=== PATIENT | female | born 1990 | race Caucasian/White ===

== ENCOUNTER 2017-10-22 16:02 | Outpatient (CLI) | payer OTHER ==
[~2017-10-22] VITALS: Ht 157.5 cm; Wt 65.0 kg
[2017-10-22 16:16] VITALS: BP 121/64; PULSE 86; TEMP 97.9
[2017-10-22] MEDS ORDERED: PRENATAL (16:33)
[2017-10-22 17:00] VITALS: BP 121/64; PULSE 86; TEMP 97.9
== END 2017-10-22 17:15 | disposition home or self-care (01) ==
LOC: LDRO 16:02
DX: O62.9 Abnormality of forces of labor, unspecified (principal); Z3A.28 28 weeks gestation of pregnancy

== ENCOUNTER → 2017-10-29 | Outpatient (CLI) | payer OTHER ==
[~2017-10-29] MED LIST: PRENATAL
== END ==
LOC: SUN.DIA 08:31
DX: O24.419 Gestational diabetes mellitus in pregnancy, unspecified control (principal); Z3A.30 30 weeks gestation of pregnancy; Z71.3 Dietary counseling and surveillance
CPT/HCPCS: G0108

== ENCOUNTER → 2017-11-13 | Outpatient (CLI) | payer OTHER | LOC: SUN.DIA 11:04 | DX: O24.419 Gestational diabetes mellitus in pregnancy, unspecified control (principal); Z3A.32 32 weeks gestation of pregnancy; Z71.3 Dietary counseling and surveillance | CPT/HCPCS: G0108 ==

== ENCOUNTER 2017-11-26 10:37 | Emergency (ER) | payer OTHER ==
[~2017-11-26] VITALS: Ht 157.5 cm; Wt 64.9 kg
[2017-11-26 10:39] VITALS: TEMP 98.4
[2017-11-26 12:06] VITALS: BP 109/75; PULSE 72
== END 2017-11-26 12:07 | disposition home or self-care (01) ==
LOC: COL.ER 10:37
DX: O99.353 Diseases of the nervous system complicating pregnancy, third trimester (principal); G43.909 Migraine, unspecified, not intractable, without status migrainosus; Z3A.33 33 weeks gestation of pregnancy

== ENCOUNTER → 2017-12-10 | Outpatient (CLI) | payer OTHER | LOC: SUN.DIA 09:07 | DX: O24.419 Gestational diabetes mellitus in pregnancy, unspecified control (principal); Z3A.36 36 weeks gestation of pregnancy; Z71.3 Dietary counseling and surveillance | CPT/HCPCS: G0108 ==

== ENCOUNTER 2017-12-30 05:19 | Inpatient (IN) | payer OTHER ==
[2017-12-30] VITALS (18 sets, daily range): BP systolic 102–118; BP diastolic 52–77; PULSE 58–94; TEMP 97.7–98.5
[~2017-12-30] VITALS: Ht 154.9 cm; Wt 68.6 kg
[2017-12-30 06:07] LABS: BASO # 0.1 (0.0-0.2); BASO % 0.8 % (0.0-2.0); EOS # 0.1 (0.0-0.7); EOS % 1.1 % (0-4.0); GRAN # 7.2 (1.4-6.5); GRAN % 61.3 % (42.2-75.2); HEMATOCRIT 37.4 % (37.0-47.0); HEMOGLOBIN 12.9 g/dl (12.5-16.0); LYMPH # 3.6 (1.2-3.4); LYMPH % 30.4 % (20.0-51.0); MEAN CELL VOLUME 88 fl (80.0-100.0); MEAN CORPUSCULAR HEMOGLOBIN 30 pg (27.0-31.0); MEAN CORPUSCULAR HGB CONC 35 g/dl (33.0-37.0); MEAN PLATELET VOLUME 11.5 fl (7.4-10.4); MONO # 0.7 (0.1-0.6); MONO % 5.8 % (1.7-9.3); PLATELET COUNT 200 K/mm3 (130-400); RED BLOOD COUNT 4.24 M/mm3 (4.10-5.30); REDCELL DISTRIBUTION WIDTH-CV 12.3 % (11.5-14.5)
[2017-12-30] MEDS ORDERED: PERCOCET 325 MG1 TA2 PO (08:18)
[2017-12-30] MEDS ORDERED: MOTRIN 800800 MG/TAB PO (08:18)
[2017-12-31 02:57] VITALS: BP 99/63; PULSE 78; TEMP 98.5
[2017-12-31 07:23] VITALS: BP 93/55; PULSE 85
[2017-12-31 16:21] VITALS: BP 109/65; PULSE 86; TEMP 97.6
[2017-12-31 20:30] VITALS: BP 115/68; PULSE 89; TEMP 97.9
[2018-01-01 07:30] VITALS: BP 112/61; PULSE 90
[2018-01-01 16:27] VITALS: BP 103/63; PULSE 94
[2018-01-01 21:30] VITALS: BP 110/62; PULSE 85; TEMP 97.8
[2018-01-02 08:35] VITALS: BP 131/73; PULSE 92; TEMP 98.1
== END 2018-01-02 11:00 | disposition home or self-care (01) | DRG 765 ==
LOC: OB 05:19
PROVIDERS: Obstetrics & Gynecology
PROC: 10D00Z1 Extraction of Products of Conception, Low, Open Approach (ICD-10-PCS; principal; 2017-12-30)
DX: O32.1XX0 Maternal care for breech presentation, not applicable or unspecified (principal); O36.5930 Maternal care for other known or suspected poor fetal growth, third trimester, not applicable or unspecified; O34.03 Maternal care for unspecified congenital malformation of uterus, third trimester; O24.420 Gestational diabetes mellitus in childbirth, diet controlled; Q51.3 Bicornate uterus; Z3A.38 38 weeks gestation of pregnancy; Z37.0 Single live birth
CPT/HCPCS: J0690; J1885; J2270; J2370; J2405; J2590; J7120

== ENCOUNTER → 2018-02-20 | Outpatient (CLI) | payer OTHER ==
[~2018-02-20] MED LIST changes: +MOTRIN 800800 MG/TAB PO; +PERCOCET 325 MG1 TA2 PO
== END ==
LOC: MC.RAD 08:50
DX: N63.11 Unspecified lump in the right breast, upper outer quadrant (principal)

== ENCOUNTER → 2018-05-01 | Outpatient (CLI) | payer OTHER | LOC: COL.RAD 14:33 | DX: O34.01 Maternal care for unspecified congenital malformation of uterus, first trimester (principal); Z98.890 Other specified postprocedural states | CPT/HCPCS: A9585 ==

== ENCOUNTER → 2020-01-13 | Outpatient (CLI) | payer OTHER | LOC: DIA.ED 08:45 | DX: O24.419 Gestational diabetes mellitus in pregnancy, unspecified control (principal) | CPT/HCPCS: G0108 ==

== ENCOUNTER → 2020-02-26 | Outpatient (CLI) | payer OTHER | LOC: COL.LAB 08:00 | DX: Z20.828 Contact with and (suspected) exposure to other viral communicable diseases (principal) ==

== ENCOUNTER 2020-03-01 05:35 | Inpatient (IN) | payer OTHER ==
[2020-03-01] VITALS (18 sets, daily range): BP systolic 92–133; BP diastolic 59–86; PULSE 58–86; TEMP 97.6–98.4
[~2020-03-01] VITALS: Ht 157.5 cm; Wt 67.3 kg
--- NOTE | 2020-03-01 05:40 | NUR ---
0540 ADM TO 221 FOR REPEAT C/SECT. EFM ON. PERMITS SIGNED. 0600 IV LR STARTED AND PEPCID 20MG IV GIVEN.
--- NOTE | 2020-03-01 06:30 | NUR ---
0622- Minimal variability noted with accels, Pt repositioned to RL, variability improves.
[2020-03-01] MEDS ORDERED: MOTRIN 800800 MG/TAB PO (06:36)
[2020-03-01] MEDS ORDERED: PERCOCET 325 MG1 TA2 PO (06:36)
[2020-03-01 06:42] LABS: BASO # 0.1 (0.0-0.2); BASO % 0.6 % (0.0-2.0); EOS # 0.1 (0.0-0.7); EOS % 0.8 % (0-4.0); GRAN # 5.4 (1.4-6.5); GRAN % 64.9 % (42.2-75.2); HEMATOCRIT 38.5 % (37.0-47.0); HEMOGLOBIN 12.7 g/dl (12.5-16.0); LYMPH # 2.2 (1.2-3.4); LYMPH % 26.9 % (20.0-51.0); MEAN CELL VOLUME 91 fl (80.0-100.0); MEAN CORPUSCULAR HEMOGLOBIN 30 pg (27.0-31.0); MEAN CORPUSCULAR HGB CONC 33 g/dl (33.0-37.0); MEAN PLATELET VOLUME 11.7 fl (7.4-10.4); MONO # 0.5 (0.1-0.6); MONO % 6.2 % (1.7-9.3); PLATELET COUNT 154 K/mm3 (130-400); RED BLOOD COUNT 4.21 M/mm3 (4.10-5.30); REDCELL DISTRIBUTION WIDTH-CV 12.4 % (11.5-14.5)
--- NOTE | 2020-03-01 09:05 | NUR ---
0905- Binder on for comfort.
--- NOTE | 2020-03-01 10:35 | NUR ---
7 cm by 4 cm saturated spot noted on dressing. Marked and will continue to monitor.
--- NOTE | 2020-03-01 11:32 | NUR ---
Dr. Ahuja on unit, notified of saturation noted on abdominal dressing. Orders to replaced with pressure dressing.
--- NOTE | 2020-03-01 11:48 | NUR ---
Abdominal dressing replaced by this RN and Jose Joseph RN using sterile technique. Pressure dressing applied and abdominal binder reapplied.
--- NOTE | 2020-03-01 16:30 | NUR ---
1630- Pt up out of bed, ambulates to to bathroom with standby assist x1. Salazar removed without difficutly. Pericare completed and explained. Underwear and peripad on. Bleeding precautions given. Pt verbalizes understanding. Pt ambulates back to bed. Tolerated well. Call light within reach.
[2020-03-02 01:00] VITALS: BP 104/62; PULSE 52; TEMP 98.3
[2020-03-02 07:30] VITALS: BP 106/68; PULSE 72; TEMP 97.7
[2020-03-02 16:10] VITALS: BP 09/70; PULSE 79; TEMP 98.2
[2020-03-02 19:15] VITALS: BP 111/68; PULSE 68; TEMP 97.5
[2020-03-03 07:56] VITALS: BP 109/69; PULSE 65; TEMP 97.7
== END 2020-03-03 16:40 | disposition home or self-care (01) | DRG 788 ==
LOC: OB 05:35 → LDR 05:35 → OB 05:36
PROVIDERS: ADMIT Obstetrics & Gynecology
PROC: 10D00Z1 Extraction of Products of Conception, Low, Open Approach (ICD-10-PCS; principal; 2020-03-01)
DX: O34.211 Maternal care for low transverse scar from previous cesarean delivery (principal); O24.420 Gestational diabetes mellitus in childbirth, diet controlled; O34.13 Maternal care for benign tumor of corpus uteri, third trimester; Z3A.39 39 weeks gestation of pregnancy; Z37.0 Single live birth
CPT/HCPCS: J0690; J1100; J1885; J2405; J2590; J3010; J7120

== ENCOUNTER → 2020-04-06 | Outpatient (CLI) | payer OTHER | LOC: COL.RAD 07:50 | DX: K80.20 Calculus of gallbladder without cholecystitis without obstruction (principal) ==

== ENCOUNTER 2023-06-17 05:32 | Inpatient (IN) | payer OTHER ==
[2023-06-17] VITALS (17 sets, daily range): BP systolic 94–118; BP diastolic 47–75; PULSE 58–92; TEMP 97.9–99
[~2023-06-17] VITALS: Ht 154.9 cm; Wt 72.7 kg
[2023-06-17 06:34] LABS: BASO # 0.1 K/mm3 (0.0-0.2); BASO % 0.7 % (0.0-2.0); EOS # 0.1 K/mm3 (0.0-0.7); EOS % 1.1 % (0.0-4.0); GRAN # 7.1 K/mm3 (1.4-6.5); GRAN % 66.9 % (42.2-75.2); HEMOGLOBIN 12.4 g/dl (12.5-16.0); LYMPH # 2.6 K/mm3 (1.2-3.4); LYMPH % 24.1 % (20.0-51.0); MEAN CELL VOLUME 91 fl (80.0-100.0); MEAN CORPUSCULAR HEMOGLOBIN 31 pg (27-31); MEAN CORPUSCULAR HGB CONC 34 g/dl (33.0-37.0); MEAN PLATELET VOLUME 10.7 fl (7.4-10.4); MONO # 0.6 K/mm3 (0.1-0.6); MONO % 6.1 % (1.7-9.3); PLATELET COUNT 168 K/mm3 (130-400); RED BLOOD COUNT 4.03 M/mm3 (4.10-5.30); REDCELL DISTRIBUTION WIDTH-CV 12.5 % (11.5-14.5)
[2023-06-17 06:38] LABS: HEMATOCRIT 36.8 % (37.0-47.0)
[2023-06-17] MEDS ORDERED: COLESTID 1GM1 G PO (07:12)
[2023-06-17] MEDS ORDERED: MOTRIN 800800 MG/TAB PO (08:25)
[2023-06-17] MEDS ORDERED: PERCOCET 325 MG1 TA2 PO (08:25)
[2023-06-18 01:00] VITALS: BP 98/54; PULSE 57; TEMP 98.3
[2023-06-18 05:00] VITALS: BP 104/59; PULSE 61; TEMP 98.1
[2023-06-18 08:00] VITALS: BP 108/71; PULSE 74; TEMP 98
--- NOTE | 2023-06-18 09:08 | NUR ---
Initial visit; Parents thanked Survey Crew Chief for offering congratulations and God's blessings for the of their daughter. Survey Crew Chief thanked family for choosing [facility].
[2023-06-18 17:13] VITALS: BP 128/73; PULSE 78; TEMP 98.1
[2023-06-18 20:30] VITALS: BP 110/65; PULSE 83; TEMP 98
[2023-06-19 07:50] VITALS: BP 110/74; PULSE 70; TEMP 98.2
--- NOTE | 2023-06-19 11:00 | NUR ---
1100 DISCUSSED DC PAPERWORK. PT UNDERSTANDS. GOING TO FEED BABY AND WILL BE READY TO DC.
== END 2023-06-19 12:17 | disposition home or self-care (01) | DRG 788 ==
LOC: OB 05:32
PROVIDERS: ADMIT Obstetrics & Gynecology
PROC: 10D00Z1 Extraction of Products of Conception, Low, Open Approach (ICD-10-PCS; principal; 2023-06-17)
DX: O34.211 Maternal care for low transverse scar from previous cesarean delivery (principal); Z37.0 Single live birth; O24.420 Gestational diabetes mellitus in childbirth, diet controlled; O99.62 Diseases of the digestive system complicating childbirth; K52.9 Noninfective gastroenteritis and colitis, unspecified; O69.81X0 Labor and delivery complicated by cord around neck, without compression, not applicable or unspecified; Z3A.39 39 weeks gestation of pregnancy; Z14.1 Cystic fibrosis carrier
CPT/HCPCS: J0665; J0690; J1100; J1885; J2371; J2405; J2590; J7120